=== PATIENT | female | born 2000 | race Two or more races ===

== ENCOUNTER 2018-11-27 14:53 | Emergency (ER) | payer OTHER ==
[~2018-11-27] VITALS: Ht 167.6 cm; Wt 63.5 kg
[2018-11-27] MEDS ORDERED: JUNEL 1 MG-201 EACH (15:30)
== END 2018-11-27 21:03 | disposition home or self-care (01) ==
LOC: ER 14:53
DX: J11.1 Influenza due to unidentified influenza virus with other respiratory manifestations (principal)